=== PATIENT | male | born 1965 | race Caucasian/White ===

== ENCOUNTER 2016-09-13 23:17 | Emergency (ER) | payer OTHER, MEDICAID ==
[~2016-09-13] VITALS: Ht 190.5 cm; Wt 90.9 kg
[~2016-09-13 23:17] MED LIST: BECL8.7A6 IH; FAMO20T PO; GABA600T PO; OMEP20TA86 PO; ONDA4TAB9 PO; PRE20 PO; QUET50TA PO; SERT50TA PO
[2016-09-13 23:24] VITALS: BP 141/87; PULSE 84; RESP 18; O2SAT 99
[2016-09-13] MEDS ORDERED: OLANZapine Zydis ODT 5 mg Tablet PO ONE (23:55)
[2016-09-13] MEDS ORDERED: LORazepam 2 mg Tablet PO ONE (23:55)
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
[2016-09-14] MEDS ORDERED: LORazepam 2 mg Tablet PO ONE (01:35)
[2016-09-14] MEDS ORDERED: _LORazepam 1 mg Tablet PO PRN (02:00)
[2016-09-14 02:17] VITALS: BP 133/81; PULSE 78; RESP 17; O2SAT 99
[2016-09-21] MEDS ORDERED: KETO10TA PO (12:24)
[2016-09-21] MEDS ORDERED: OXYC-466 PO (12:24)
[2016-09-21] MEDS ORDERED: SERT100T9 PO (12:24)
[2016-09-21] MEDS ORDERED: TRAZ-118 PO (12:24)
[2016-09-21] MEDS ORDERED: ATOM80CA PO (12:24)
[2016-09-21] MEDS ORDERED: GABA-502 PO (12:24)
[2016-09-21] MEDS ORDERED: CEPH500C PO (12:24)
== END 2016-09-14 02:26 | disposition home or self-care (01) ==
LOC: SED 23:17
DX: F43.0 Acute stress reaction (principal); F41.9 Anxiety disorder, unspecified; F43.10 Post-traumatic stress disorder, unspecified; J44.9 Chronic obstructive pulmonary disease, unspecified; F32.9 Major depressive disorder, single episode, unspecified; G89.29 Other chronic pain; F17.200 Nicotine dependence, unspecified, uncomplicated; Z88.8 Allergy status to other drugs, medicaments and biological substances; Z91.040 Latex allergy status

== ENCOUNTER 2016-09-28 06:58 | Day surgery (SDC) | payer MEDICAID ==
[2016-09-28] VITALS (8 sets, daily range): BP systolic 128–153; BP diastolic 76–94; PULSE 64–71; RESP 12–16; O2SAT 94–99
[~2016-09-28] VITALS: Ht 190.5 cm; Wt 90.5 kg
[~2016-09-28 06:58] MED LIST changes: +ATOM80CA PO; -BECL8.7A6 IH; +CEPH500C PO; +CeFAZolin 2 Gm/50 mL D5W IV Premix IV ONE; -FAMO20T PO; +GABA-502 PO; -GABA600T PO; +KETO10TA PO; -OMEP20TA86 PO; -ONDA4TAB9 PO; +OXYC-466 PO; -PRE20 PO; -QUET50TA PO; +SERT100T9 PO; -SERT50TA PO; +TRAZ-118 PO
[2016-09-28] MEDS ORDERED: Propofol 10,000 mCg/mL 20 mL Inj ONE (06:59)
[2016-09-28] MEDS ORDERED: MetoCLOpramide 5 mg/mL 2 mL Inj ONE (06:59)
[2016-09-28] MEDS ORDERED: Dexamethasone 4 mg/mL Inj ONE (06:59)
[2016-09-28] MEDS ORDERED: Ondansetron 2 mg/mL 2 mL Inj ONE (06:59)
[2016-09-28] MEDS: Lactated Ringer's 1,000 ML IV SCH ×2 (07:23→08:47)
--- NOTE | 2016-09-28 08:01 | PCM.HPANE ---
Patient Data Date of Service: Sep 28, 2016 Surgeon Admitting Provider: Attending Provider:Michael Troncoso MD Primary Care Physician:Akil Gallegos MD Other Provider:Juanito Mcclendon Anesthesia Reason for Visit Left Thumb Laceration Ht/WT & BMI Height (Feet): 6 Height (Inches): 3.00 Weight (Kilograms): 90.5 Body Mass Index 24.00 Allergies Coded Allergies: latex (Verified Allergy, Mild, HANDS SENSITIVE, 10/10/15) Past Anesthesia History Anesthesia History: Denies:: Abnormal Airway, Anesthesia Reactions, Difficult Intubation, Fam Anesthesia Reaction, Fam Malignant Hypertherm, Malignant Hyperthermia Diabetes History Hx Diabetes?: No MRSA MRSA: No Medications Hypertension Medication: No Home Meds Incl Beta Carrie: No Reported Medications Atomoxetine (Strattera)80 Mg Lodustz71 Mg PO DAILY 09/21/16 Trazodone 100 Mg Xaybks034 Mg PO HS Ref 0 09/21/16 Sertraline HCl (Sertraline)100 Mg Fgqkzl756 Mg PO DAILY 30 Days Ref 0 09/21/16 oxyCODONE-Acetaminophen 10-325 mg 1 Each Tablet1 Tablet PO Q6H PRN For Pain Ref 0 09/21/16 Ketorolac Tromethamine 10 Mg Zmszih24 Mg PO TID 30 Days 09/21/16 Gabapentin 300 Mg Bxhfsdj439 Mg PO TID Ref 0 09/21/16 Cephalexin 500 Mg Abxfwzy290 Mg PO Q12H #40 CAPSULE Ref 0 09/21/16 Discontinued Reported Medications Sertraline HCl (Zoloft)50 Mg Raztwj477 Mg PO DAILY 30 Days Ref 0 12/18/14 Quetiapine Fumarate (Seroquel)50 Mg Cewfto940 Mg PO HS Ref 0 12/18/14 Gabapentin (Neurontin)600 Mg Rxuiuq472 Mg PO TID 30 Days Ref 0 12/18/14 Discontinued Scripts Omeprazole 20 Mg Tablet.dr20 Mg PO BID #60 TABLET Prov:Pedro Billings MD 10/10/15 Famotidine (Pepcid)20 Mg Jzecmp24 Mg PO BID #30 TABLET Prov:Kin Barnes MD 08/30/15 Ondansetron ODT (Zofran ODT)4 Mg Tablet4 Mg PO Q4H PRN For Nausea #10 TABLET Prov:Kin Barnes MD 08/30/15 Prednisone (PredniSONE)20 Mg Dmqmey45 Mg PO DAILY #21 TABLET Ref 0 Prov:Harry Montero DO 06/18/15 Beclomethasone Dipropionate (Qvar)8.7 Gm Aer.w.adap1 Puff IH BID #1 Prov:Harry Montero DO 06/18/15 History History of ENT Problems?: No HEENT History: Denies:: Abnormal Airway Difficult Intubation Dysphagia Hearing Problem Sinus Problem TMJ Denture Type: Full- Upper Full- Lower Teeth Condition: No Teeth Hx of Heart Problems?: No Cardiovascular History: Denies:: AICD Abdominal Aortic Aneurism Atrial Fibrillation Cardiac Surgery Chest Pain Congestive Heart Failure Edema Heart Murmur Hypertension Irregular Heartbeat Pacemaker Peripheral Vascular Hx of Respiratory Problem?: No Respiratory History: Denies:: Asthma COPD Emphysema Oxygen Administration Pneumonia Tuberculosis Use of C-PAP Machine Hx Neurologic Problems?: Yes Neurological History: Positive for:: Headaches (once to twice - takes excedrin migraine) Denies:: CVA Multiple Sclerosis Parkinson's Disease Seizures TIA Other Neurological Pertinent: chronic pain Hx of GI Problems?: No Gastrointestinal History: Denies:: Gastroesphageal Reflux Hx of Problems?: No Genitourinary History: Denies:: Kidney Stones Urinary Tract Infection Male Hx: Denies:: Prostate Problems Scrotal Mass Testicular Surgery Skin History: Positive for:: History Skin Disorders? (laceration current admission problem) Hx Musculoskeletal Problems?: Yes Musculoskeletal History: Positive for:: Musculoskeletal Trauma (left thumb laceration current admission ) Denies:: Back Injury Fibromyalgia Joint Replacement Systemic Lupus Hx of Psycho/Social Problems?: Yes Psycho Social History: Positive for:: Anxiety (PTSD) Hx Depression Denies:: Bipolar Disorder Hx Surgeries?: Yes (multiple ortho) Hx Any Other Health Problems?: Yes Other History: Denies:: Cancer Thyroid Disease History Blood Transfusions: Positive for:: Accept Blood Products? Denies:: Blood Transfusions Hx Diabetes: No Hx Alcohol Use: YesAlcoholic Drinks Per Day: twice monthlyHx Substance Use: Yes (marijuana- inhales - now denies smoking, eats it) Smoking Status: Current Every Day Smoker Have You Smoked inLast 12 mo: Yes (up to 25 cigarettes day)Approx How Many Cigarettes/day: 1ppd Stop/Bang Treated for Sleep Apnea?: No Do You Have a CPAP Machine?: No S-Snoring: Do You Snore Loudly: No T-Tired: feel tired, fatigued: Yes O-Obsered: Observed not breath: No P-Blood Pressure: treated: No B- Body Mass Index > 35 kg/m2: No A- Age over 50: No N- Neck Large Circumference: No G- Gender Male: Yes EDI Total Score: 2 EDI Risk Assessment: Low Risk, <3 Yes Risk Assessment Category Category 1A: Patient has history of documented sleep apnea, and HAS NOT received any narcotic, sedative or anesthesia administration during this stay. Category 1B: Patient has history of documented sleep apnea, and HAS received any narcotic , sedative or anesthesia administration during this stay Category 2: Patient has SUSPECTED Obstructive Sleep Apnea, and HAS received any narcotic , sedative or anesthesia administration during this stay. Category 3: Patient has SUSPECTED Obstructive Sleep Apnea and HAS NOT received narcotic, sedative or anesthesia administration during this stay. Category 4: Outpatient in Procedural Areas with known sleep apnea or who screen positive for High Risk via the STOP/BANG questionnaire. Exam Exam Vital Signs Vital Signs Date Time Temp Pulse Resp B/P Pulse Ox O2 Delivery O2 Flow Rate FiO2 09/28/16 07:36 36.5 66 16 128/92 99 Room Air General Appearance: Alert, Oriented X3, Cooperative, No Acute Distress HEENT/AIRWAY: MP 3, Neck Movement, Mouth Opening (>3), Other (tmd>3) Lungs: Diminished, Wheezes Heart: Exam Unremarkable, Regular Rate/Rhythm, Normal S1, Normal S2, No Murmurs /Rubs/Gallops Meds/Labs/Diagnostics Admission Meds Current Medications Lactated Ringer's (Lr) 1,000 ml @ 120 mls/hr Q8H20M IV Last administered on t 07:23; Start 09/28/16 at 05:00; Stop 09/28/16 at 13:19 Plan Impression Patient chart reviewed, patient interviewed and anesthestic plan with risks, benefits, and alternatives discussed, and informed consent obtained. NPO per Anesth. Guidelines: Yes ASA Physical Status: ASA2 Mod Systemic Disease Anesthetic Plan: GA Bene/Risks/Altern/Consents: Yes HP Complete Prior to Induction: Yes Papi Galeas MD Sep 28, 2016 08:00
[2016-09-28] MEDS ORDERED: Bupivacaine-MPF 0.25% 30 mL Inj INFILTRATE ONE (09:20)
[2016-09-28] MEDS ORDERED: Lactated Ringer's 500 ML IV PRN (09:23)
[2016-09-28] MEDS ORDERED: Lactated Ringer's 1,000 ML IV SCH (09:23)
[2016-09-28] MEDS ORDERED: MetoCLOpramide 5 mg/mL 2 mL Inj IVPUSH PRN (09:25)
[2016-09-28] MEDS ORDERED: EPHEDrine Sulfate 50 mg/mL Inj IVPUSH PRN (09:25)
[2016-09-28] MEDS ORDERED: HYDROmorphone 1 mg/mL Inj IVPUSH PRN (09:25)
[2016-09-28] MEDS ORDERED: Dexamethasone 4 mg/mL Inj IVPUSH PRN (09:25)
[2016-09-28] MEDS ORDERED: fentaNYL-PF 50 mCg/mL 2 mL Inj IVPUSH PRN (09:25)
[2016-09-28] MEDS ORDERED: Ondansetron 2 mg/mL 2 mL Inj IVPUSH PRN (09:25)
[2016-09-28] MEDS ORDERED: Phenylephrine 10,000 mCg/mL Inj IVPUSH PRN (09:25)
--- NOTE | 2016-09-28 10:36 | OP ---
[address] [address] OPERATIVE REPORT PATIENT: LOY VARELA : 1965 MR#: [id number] ADMIT: 09/28/2016 JOB ID: [id number] DATE OF SURGERY: 09/28/2016 PREOPERATIVE DIAGNOSIS(ES): Left thumb laceration with tendon injury. POSTOPERATIVE DIAGNOSIS(ES): Left thumb laceration with tendon injury with complete transection of the left extensor pollicis longus tendon. PROCEDURE: 1. Exploration of left thumb laceration with extension of the laceration and subsequent repair. 2. Left thumb extensor pollicis longus laceration repair, zone two. SURGEON: Michael Troncoso M.D. CLINICAL SUPPORT TECH: None. ANESTHESIA: General anesthesia. ESTIMATED BLOOD LOSS: Minimal. COMPLICATIONS: None apparent. SPECIMEN: None. INDICATIONS FOR PROCEDURE: This is a 50-year-old male patient who sustained a laceration to the left thumb approximately 10 days ago. Examination is consistent with laceration of the extensor pollicis longus tendon. At this point, exploration of the laceration and repair of the tendon are indicated. PROCEDURE AND FINDINGS: The patient was identified in the preoperative area. Surgical site was marked. The patient was then taken back to the operating room and placed supine on the operating table. Appropriate time-outs were taken. General anesthesia was induced smoothly. The patient was then prepped and draped in the usual sterile manner. Local anesthesia was infiltrated in a radial sensory block using 0.25% Marcaine. The left upper extremity was then exsanguinated and an arm tourniquet was inflated to 250 mmHg. It was noted that patient has an oblique laceration on the dorsum of the left thumb. It is located on the radial aspect of the dorsum just proximal to the interphalangeal crease. I removed the patient sutures. The laceration was then deepened down into the subcutaneous tissue with a pair of tenotomy scissors. It was noted that the extensor pollicis longus tendon was completely lacerated. The proximal tendon stump lies proximal to the laceration. The distal stump lies just distal to the laceration as well. An extension of the laceration proximally and distally was then planned. Proximally a 90 degree turn was made at the proximal aspect of the incision extending the new incision down to the level of the metacarpophalangeal joint. An incision was made with a 15 blade just through the skin. Blunt dissection and sharp dissection with a pair of tenotomy scissors was done down to the extensor apparatus. Distally a axle incision was made connecting to the distal end of the laceration. The lacerated incision was extended to approximately 6-7 mm distal to the interphalangeal crease. Again the incision was made with a #15 blade and deepened down to the underlying subcutaneous tissue. Once this has been done, I elevated the skin flap off of the extensor apparatus proximally and distally. At this point, both the proximal and distal tendon stumps were visualized clearly. Using a pair of tenotomy scissors, I elevated the tendon off of the underlying periosteum proximally and distally to ensure that no soft tissue was found to be entrapped in the repair. Once this has been done, the IP joint was placed in full extension. The MP joint was placed in full extension. This allowed the tendon ends to be brought to close reapproximation. The tendon was then repaired with a modified Howard weave using 3-0 Ethibond sutures. Once this has been done, a 3-0 Ethibond horizontal mattress suture was then placed for additional support. This was placed outside of Howard weave. Once this has been done, a 5-0 Prolene running cross stitch was placed in a silver scored method for additional support. Tourniquet was released and hemostasis was obtained with electrocautery. The IP joint was arranged and the repair appears to be secure. The laceration and the incisions were reapproximated using several 4-0 nylon horizontal mattress sutures. The patient tolerated the procedure well. Needle count, sponge count, instrument counts were correct at the end of the procedure. The patient was placed into a small thumb spica splint with the MP and IP joint in full extension. The patient was transported to recovery in stable condition.
[2016-09-28] MEDS ORDERED: oxyCODONE-Acetamin 10-325 mg Tablet PO ONE (10:38)
[2016-09-28] MEDS ORDERED: oxyCODONE-Acetamin 10-325 mg Tablet PO PRN (10:45)
== END 2016-09-28 23:59 | disposition home or self-care (01) ==
LOC: SAS 06:58
PROVIDERS: ATTEND Plastic Surgery
DX: S61.012A Laceration without foreign body of left thumb without damage to nail, initial encounter (principal); R51 Headache; F43.10 Post-traumatic stress disorder, unspecified; F17.210 Nicotine dependence, cigarettes, uncomplicated; Z79.899 Other long term (current) drug therapy; Z91.040 Latex allergy status
CPT/HCPCS: 26418; J0690; J1100; J1170; J2250; J2405; J2765; J3010; J7120

== ENCOUNTER 2016-10-05 21:37 | Emergency (ER) | payer MEDICAID ==
[~2016-10-05] VITALS: Ht 190.5 cm; Wt 88.6 kg
[~2016-10-05 21:37] MED LIST changes: -CeFAZolin 2 Gm/50 mL D5W IV Premix IV ONE
[2016-10-05 21:42] VITALS: BP 129/82; PULSE 82; RESP 16; O2SAT 98
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
== END 2016-10-05 22:30 | disposition home or self-care (01) ==
LOC: SED 21:37
DX: S61.211A Laceration without foreign body of left index finger without damage to nail, initial encounter (principal); W31.1XXA Contact with metalworking machines, initial encounter; Y92.9 Unspecified place or not applicable; Y93.89 Activity, other specified; Y99.8 Other external cause status; J44.9 Chronic obstructive pulmonary disease, unspecified; F32.9 Major depressive disorder, single episode, unspecified; F43.10 Post-traumatic stress disorder, unspecified; M54.9 Dorsalgia, unspecified; G89.29 Other chronic pain; F17.200 Nicotine dependence, unspecified, uncomplicated; Z98.890 Other specified postprocedural states